=== PATIENT | female | born 1965 | race Caucasian/White ===

== ENCOUNTER → 2024-08-13 07:21 | Outpatient (REF) | payer OTHER, SELFPAY | LOC: HWWDC 07:21 | PROVIDERS: ATTENDING PHYSICIAN Nurse Practitioner | DX: Z78.0 Asymptomatic menopausal state (principal); Z12.31 Encounter for screening mammogram for malignant neoplasm of breast | CPT/HCPCS: 77063; 77067; 77080 ==

== ENCOUNTER 2024-11-26 18:36 | Emergency (ER) | payer OTHER, SELFPAY ==
[2024-11-26 18:41] VITALS: BP 129/76
[2024-11-26] MEDS: CLEOCIN 52 MG IV (20:02)
--- NOTE | 2024-11-26 20:05 | ED.GENMED ---
History of Present Illness
<Caitlin Sung ANIMAL KILLER - Last Filed: 11/27/24 00:35>
General
Chief Complaint: Oral/Mouth Problem
Source: patient
Exam Limitations: none
Time Seen by Provider: 11/26/24 18:56
Nursing documentation reviewed up to this point in time: agreed with
History of Present Illness
History of Present Illness:
59-year-old female saw her dentist 2 days ago for sore right lower tooth, she needs a root canal, she was given amoxicillin 500 3 times daily and she has had a tablet so far. She went back to the dentist today due to swelling in the right jaw, she
states he numbed the area and squeezed some pus out of it then sent her here for IV antibiotics and CAT scan
She denies fever or chills. She feels well otherwise.
Review of Systems
<Caitlin Sung ANIMAL KILLER - Last Filed: 11/27/24 00:35>
Review of Systems
Allergies reviewed?: Yes
All Other Systems: ROS reviewed and negative except as documented in HPI and ROS
EENT: Reports mouth pain
Phy Exam
<Caitlin Sung, ANIMAL KILLER - Last Filed: 11/27/24 00:35>
Physical Exam
Physical Exam:
GENERAL: No acute distress. A&Ox3.
CONSTITUTIONAL: Afebrile.
EYES: clear, conjunctivae normal
ENMT: moist mucus membranes, Pharynx nl, no trismus. Tenderness and mild swelling right lower jaw, no erythema, gingival buccal mucosa is abraded from what ever was done at the dental office, unable to express any drainage. Mild swelling of the
area.
RESPIRATORY: Regular respirations, nonlabored, lungs clear.
CARDIOVASCULAR: Regular rate and rhythm, no murmurs, no rubs.
GI: Soft, nontender, normal BS
MUSCULOSKELETAL: Moves with ease. Well perfused.
SKIN: Warm, dry, pink
PSYCH: Normal mood and affect. Well kept, interactive and appropriate
NEUROLOGIC: Awake, alert and oriented. No focal neurological deficits
Course
<Caitlin Sung NP - Last Filed: 11/27/24 00:35>
Orders/Labs/Results
Orders:
Orders
11/26/24 19:36
CT Facial Bones W/ Iv Contrast Urgent
Comment:
Reason For Exam: ?abscess right lower tooth/jaw
11/26/24 19:44
Complete Blood Count/With Diff Urgent
Comprehensive Metabolic Panel Urgent
11/26/24 19:49
Clindamycin Phosphate [Cleocin] 300 mg 0.9% Sodium Chloride [Nss] 50 ml IV NOW
Abnormal Lab Results
11/26/24
19:44
RBC 3.73 L 10^6/uL
(4.20-5.40)
Hct 36.2 L %
(37.0-47.0)
MCH 33.2 H pg
(27.0-31.0)
Chloride 110 H mmol/L
(98-107)
11/26/24 19:44
11/26/24 19:44
Vital Signs
Initial and Last Documented VS:
Initial Vital Signs
Temp Resp Pulse Ox
98.6 F 18 98
11/26/24 18:38 11/26/24 18:38 11/26/24 18:38
Last Documented Vital Signs
Temp Pulse Resp BP Pulse Ox
98.6 F 57 16 109/71 96
11/26/24 18:38 11/26/24 21:57 11/26/24 21:57 11/26/24 21:57 11/26/24 21:57
Chef Saucier consulted with Physician
Chef Saucier consulted with physician?: Yes
Name of Physician Consulted: Skyler
<Jabari Holland MD - Last Filed: 11/26/24 21:40>
Orders/Labs/Results
Orders:
Orders
11/26/24 19:36
CT Facial Bones W/ Iv Contrast Urgent
Comment:
Reason For Exam: ?abscess right lower tooth/jaw
11/26/24 19:44
Complete Blood Count/With Diff Urgent
Comprehensive Metabolic Panel Urgent
11/26/24 19:49
Clindamycin Phosphate [Cleocin] 300 mg 0.9% Sodium Chloride [Nss] 50 ml IV NOW
Abnormal Lab Results
11/26/24
19:44
RBC 3.73 L 10^6/uL
(4.20-5.40)
Hct 36.2 L %
(37.0-47.0)
MCH 33.2 H pg
(27.0-31.0)
Chloride 110 H mmol/L
(98-107)
11/26/24 19:44
11/26/24 19:44
Vital Signs
Initial and Last Documented VS:
Initial Vital Signs
Temp Resp Pulse Ox
98.6 F 18 98
11/26/24 18:38 11/26/24 18:38 11/26/24 18:38
Last Documented Vital Signs
Temp Pulse Resp BP Pulse Ox
98.6 F 57 16 109/71 96
11/26/24 18:38 11/26/24 21:57 11/26/24 21:57 11/26/24 21:57 11/26/24 21:57
<Caitlin Sung, ANIMAL KILLER - Last Filed: 11/27/24 00:35>
MDM/Problems Addressed
Differential Diagnosis Includes:
Dental abscess, cellulitis
MDM/Problems Addressed:
59-year-old female saw her dentist 2 days ago for sore right lower tooth, she needs a root canal, she was given amoxicillin 500 3 times daily and she has had a tablet so far. She went back to the dentist today due to swelling in the right jaw, she
states he numbed the area and squeezed some pus out of it then sent her here for IV antibiotics and CAT scan
She denies fever or chills. She feels well otherwise.
9:30 PM:
CBC with no clinically significant abnormality
CMP normal CAT scan facial bones radiology report read: IMPRESSION: Enhancing soft tissue including fat stranding anterior to the central and right side of the mandible, and to a lesser degree the soft tissues adjacent to the left paramedian
mandible. Findings suggest cellulitis. No evidence of a soft tissue collection to suggest an abscess at this time.
Dose IV Clindamycin given
Patient will be switched from amoxicillin to clindamycin
Dr. Holland in to evaluate patient and agrees with assessment and plan
<Caitlin Sung ANIMAL KILLER - Last Filed: 11/27/24 00:35>
*Critical Care Note
Total Time (30-74mins, 75-104mins- exclusive of procedures): Not Applicable
ED Attending Note
<Caitlin Sung NP - Last Filed: 11/27/24 00:35>
-
Portions of this chart may have been created with voice recognition software.� Occasional wrong word or��sound alike� substitutions may have occurred due to the inherent limitations of voice recognition software.
<Jabari Holland MD - Last Filed: 11/26/24 21:40>
ED Attending Note
Patient seen and examined by attending physician: Yes
I performed the substantive portion of visit, reviewed & personally made and approve the management plan that is documented in note by myself or ANTHONY.: Yes
ED Attending Note:
Patient with dental issues for 2 to 3 days. Has been seen by her dentist. Scheduled for root canal. She had it drained today in the office with some pus. However she was sent for IV antibiotics. She does not think she was intended to be
admitted. She has no airway issues trouble breathing or swallowing.
On exam patient has mild swelling to the right mandible at the angle. She is a small wound to the lateral gum internally but no fluctuant drainage. No airway issues no drooling no stridor no trismus no general neck swelling. Labs are stable. No
drainable abscess. No airway issues. Will change to clindamycin and follow-up
Discharge Plan
Departure
Patient Disposition: Home (Routine Discharge)
Date of Disposition: 11/26/24
Time of Disposition: 21:37
Patient with high blood pressure during this ER visit?: No
Condition: Good
Discharge Problem:
Dental abscess
Instructions: Tooth Abscess (DC)
Prescriptions:
New
clindamycin HCl 300 mg capsule
300 mg PO Q6H Qty: 28 0RF
No Action
amoxicillin 500 mg Capsule
500 mg PO Q8H
Rx Instructions:
start 11/24/24 for 7 days
Theragen Tablet
1 tab PO DAILY
aspirin 81 mg Tablet,Delayed Release (Dr/Ec)
81 mg PO DAILY
zinc sulfate 50 mg zinc (220 mg) Tablet
50 mg PO DAILY
calcium carbonate [Calcium 500] 500 mg calcium (1,250 mg) Tablet
500 mg PO DAILY
naproxen sodium [Aleve] 220 mg Tablet
220 mg PO BIDPRN PRN (Reason: mild pain)
cholecalciferol (vitamin D3) [Vitamin D3] 25 mcg (1,000 unit) Tablet
25 mcg PO DAILY
omega 4-[id number]-fish oil [Fish Oil] 1,000 (120-180) mg Capsule
1 cap PO DAILY
Referrals:
Your, Dentist [Other] - Call in 1-3 days for appt
Jeannette Jensen CRNP [Family Provider] -
Activity Restrictions/Additional Instructions:
As we discussed, I sent a prescription to your pharmacy for clindamycin to take 4 times a day for 7 days.
Return here immediately for increasing swelling, pain, fever, vomiting or feeling sicker in any way.
Call your dentist tomorrow as planned and make a follow-up appointment.
Interventions
Interventions:
*Risk Screen - Suicide Last Done: 11/26/24 18:40
*General Assessment Last Done: 11/26/24 18:40
*Neglect/Abuse Screening Last Done: 11/26/24 18:40
*Nursing Disposition Last Done: 11/26/24 21:57
Discharge Date and Time
Discharge Date/Time: 11/26/24 21:58
Print Language: [place]
[2024-11-26 20:06] LABS: ALT (SGPT) 24 U/L (0-35); AST (SGOT) 28 U/L (14-36); Alkaline Phosphatase 100 U/L (38-126); Blood Urea Nitrogen 15 mg/dl (7-17); Calcium 8.9 mg/dl (8.4-10.2); Carbon Dioxide 24 mmol/L (22-30); Chloride 110 mmol/L (98-107); Glucose 88 mg/dl (70-99); Potassium 4.1 mmol/L (3.5-5.1); Sodium 140 mmol/L (135-145); Total Bilirubin 0.6 mg/dl (0.2-1.3); eGFR > 60.00
[2024-11-26 20:08] LABS: % Basophils 0.9 % (0-2); % Eosinophils 1.5 % (0-6); % Immature Granulocytes 0.2 % (0-0.5); % Lymphocytes 20.6 % (20.5-51.1); % Monocytes 8.5 % (1.7-9.3); % Neutrophils 68.3 % (42.2-75.2); Absolute Basophils 0.1 10^3/uL (0-0.2); Absolute Eosinophils 0.1 10^3/uL (0-0.7); Absolute Lymphocytes 1.4 10^3/uL (1.2-3.4); Absolute Monocytes 0.6 10^3/uL (0.1-0.6); Absolute Neutrophils 4.5 10^3/uL (1.4-6.5); Hematocrit 36.2 % (37.0-47.0); Hemoglobin 12.4 g/dL (12.0-16.0); Mean Corp Hgb Conc. 34.3 g/dL (33.0-37.0); Mean Corpuscular Hgb 33.2 pg (27.0-31.0); Mean Corpuscular Volume 97.1 fL (81.0-99.0); Mean Platelet Volume 10.3 fL (7.4-10.4); Nucleated Red Blood Cells % 0 %; Platelet Count 276 10^3/uL (130-400); Red Blood Cell Count 3.73 10^6/uL (4.20-5.40); Red Cell Dist. Width 12.7 % (11.5-14.5); White Blood Cell Count 6.6 10^3/uL (4.8-10.8)
[2024-11-26 21:57] VITALS: BP 109/71
== END 2024-11-26 21:58 | disposition home or self-care (01) ==
LOC: EMR 18:36
PROVIDERS: Registered Nurse; EMERGENCY PHYSICIAN Emergency Medicine; FAMILY PHYSICIAN Nurse Practitioner
DX: K04.7 Periapical abscess without sinus (principal); R22.0 Localized swelling, mass and lump, head; Z79.82 Long term (current) use of aspirin
CPT/HCPCS: 99284; 96365; 70487; 80053; 85025; Q9967